=== PATIENT | male | born 1975 | race Caucasian/White ===

== ENCOUNTER → 2022-08-08 | Day surgery (SDC) | payer OTHER ==
[~2022-08-08] VITALS: Ht 185.4 cm; Wt 112.4 kg
[~2022-08-08] MED LIST: CIPR-249 PO; FLUC100T3 PO; HYDR-3715 PO; METR-265 PO; NS 1,000 ML IV ONE; propofoL 200 MG/20 ML VIAL As Ordered ONE
[2022-08-08 09:58] VITALS: BP 133/89
== END | disposition home or self-care (01) ==
LOC: M OPP 08:53
PROVIDERS: ATTEND Surgery
DX: K57.32 Diverticulitis of large intestine without perforation or abscess without bleeding (principal); K57.30 Diverticulosis of large intestine without perforation or abscess without bleeding; Z87.19 Personal history of other diseases of the digestive system; Z09 Encounter for follow-up examination after completed treatment for conditions other than malignant neoplasm; Z90.49 Acquired absence of other specified parts of digestive tract